=== PATIENT | female | born 1990 | race Two or more races ===

== ENCOUNTER 2020-03-02 19:36 | Emergency (ER) | payer MEDICAID ==
[~2020-03-02] VITALS: Ht 160 cm; Wt 143.0 kg
[2020-03-02 19:41] VITALS: BP 103/72
== END 2020-03-02 22:56 | disposition home or self-care (01) ==
LOC: ER 19:36
DX: T78.40XA Allergy, unspecified, initial encounter (principal); Z98.890 Other specified postprocedural states
CPT/HCPCS: 99283